=== PATIENT | female | born 1995 | race African-American/Black ===

== ENCOUNTER 2017-09-15 17:18 | Emergency (ER) | payer SELFPAY | END 2017-09-15 20:26 | disposition home or self-care (01) | LOC: ER 20:26 | DX: N89.8 Other specified noninflammatory disorders of vagina (principal); N91.2 Amenorrhea, unspecified; R10.9 Unspecified abdominal pain; J45.909 Unspecified asthma, uncomplicated; Z88.5 Allergy status to narcotic agent; Z88.6 Allergy status to analgesic agent; Z88.8 Allergy status to other drugs, medicaments and biological substances | CPT/HCPCS: 36415; 84702; 99283 ==